=== PATIENT | female | born 1975 | race Caucasian/White ===

== ENCOUNTER 2019-02-15 22:42 | Emergency (ER) | payer BC ==
[~2019-02-15] VITALS: Ht 160 cm; Wt 52.2 kg
[~2019-02-15 22:42] MED LIST: OMEP40CA33 PO; SUCR1TAB78 PO
[2019-02-15 23:01] VITALS: BP_SYST 121
--- NOTE | 2019-02-16 01:42 | NUR ---
PT AMBULATORY TO BED 8 FOR EVALUATION
--- NOTE | 2019-02-16 01:47 | NUR ---
ER at bedside examining patient.
--- NOTE | 2019-02-16 01:55 | NUR ---
Pt BIB family to ED C/O INCREASED URINATION, PRESSURE IN PELVIC REGION AND PAIN, HEMATURIA. No other injuries and or complaints noted VSS no s/s of acute distress. Resting on gurney rails up
[2019-02-16] MEDS ORDERED: PHENAZOPYRIDINE HCL 100 MG TABLET PO ONE (02:00)
[2019-02-16] MEDS ORDERED: cefTRIAXone 1 GM in LIDOCAINE 1%, 20 ML MDV 2.1 ML IM ONE (02:00)
[2019-02-16] MEDS ORDERED: cefTRIAXone 1 GM IVPB PREMIX 50 ML IV ONE (02:00)
[2019-02-16 02:18] VITALS: BP_SYST 121
--- NOTE | 2019-02-16 02:18 | NUR ---
Patient given written and verbal discharge instructions and verbalizes understanding. ER MD discussed with patient the results and treatment provided. Patient in stable condition. ID arm band removed. Rx of Keflex and Pyridium given. Patient educated on pain management and to follow up with PMD. Pain Scale 0/10 Opportunity for questions provided and answered. Medication side effect fact sheet provided.
[2019-02-16 02:39] LABS: BILIRUBIN,URINE NEGATIVE (NEGATIVE); BLOOD, URINE 3+ (NEGATIVE); CLARITY/URINE CLEAR (CLEAR); COLOR,URINE YELLOW (YELLOW); GLUCOSE,URINE NEGATIVE (NEGATIVE); KETONES,URINE NEGATIVE (NEGATIVE); LEUKOCYTE ESTERASE ,URINE 3+ (NEGATIVE); NITRITE, URINE NEGATIVE (NEGATIVE); PROTEIN URINE 1+ (NEGATIVE); UROBILINOGEN,URINE 0.2 (0.2-1.0)
[2019-02-16 02:44] LABS: BACTERIA,URINE MODERATE /HPF (None Seen); MUCUS,URINE 1+ /LPF (None Seen); RBC,URINE 50-80 /HPF (0-3); WBC,URINE >100 /HPF (0-3)
== END 2019-02-16 02:18 | disposition home or self-care (01) ==
LOC: SED 22:42
CPT/HCPCS: 96372; 99283

== ENCOUNTER 2020-01-24 15:06 | Emergency (ER) | payer BC ==
[~2020-01-24] VITALS: Ht 160 cm; Wt 52.2 kg
[~2020-01-24 15:06] MED LIST changes: +OMEP40CA13 PO; -OMEP40CA33 PO
[2020-01-24 15:14] VITALS: BP_SYST 126
[2020-01-24 16:30] LABS: BASOPHILS % (AUTO) 0.2 % (0.0-2.0); EOSINOPHILS # (AUTO) 0.1 K/uL (0.0-0.4); EOSINOPHILS % (AUTO) 1.4 % (0.0-4.0); HEMATOCRIT 37.8 % (36-48); HEMOGLOBIN 12.7 g/dL (12.0-16.0); LYMPHOCYTES # (AUTO) 1.8 K/uL (1.0-5.5); LYMPHOCYTES % (AUTO) 31.2 % (20.5-51.5); MEAN CORPUSCULAR HEMOGLOBIN 31 pg (27-31); MEAN CORPUSCULAR HGB CONC 34 % (32-36); MEAN CORPUSCULAR VOLUME 92 fL (79.0-98.0); MONOCYTES # (AUTO) 0.5 K/uL (0.0-1.0); MONOCYTES % (AUTO) 8.3 % (1.7-9.3); NEUTROPHILS # (AUTO) 3.3 K/uL (1.8-7.7); NEUTROPHILS % (AUTO) 58.9 % (40.0-70.0); PLATELET COUNT (AUTO) 272 K/uL (130-430); RED BLOOD CELL COUNT(AUTO) 4.09 MIL/uL (4.2-6.2); RED CELL DISTRIBUTION WIDTH 12.8 % (9.0-15.0); WHITE BLOOD COUNT (AUTO) 5.6 K/uL (4.8-10.8)
[2020-01-24 16:38] LABS: CALCIUM 9.1 mg/dL (8.4-11.0); CREATININE 0.86 mg/dL (0.55-1.30); POTASSIUM 4.1 mmol/L (3.5-5.1)
[2020-01-24 17:01] LABS: BILIRUBIN,URINE NEGATIVE (NEGATIVE); BLOOD, URINE 2+ (NEGATIVE); GLUCOSE,URINE TRACE (NEGATIVE); KETONES,URINE TRACE (NEGATIVE); LEUKOCYTE ESTERASE ,URINE NEGATIVE (NEGATIVE); NITRITE, URINE NEGATIVE (NEGATIVE); PROTEIN URINE NEGATIVE (NEGATIVE); UROBILINOGEN,URINE 0.2 (0.2-1.0)
[2020-01-24 17:10] LABS: COLOR,URINE YELLOW (YELLOW)
[2020-01-24 17:12] LABS: BACTERIA,URINE None Seen /HPF (None Seen); WBC,URINE 0-3 /HPF (0-3)
[2020-01-24 17:14] LABS: CLARITY/URINE HAZY (CLEAR)
[2020-01-24 18:44] VITALS: BP_SYST 126
== END 2020-01-24 18:45 | disposition home or self-care (01) ==
LOC: SED 15:06
DX: R10.31 Right lower quadrant pain (principal)
CPT/HCPCS: 36415; 76705; 76830-TC; 76856-TC; 76857; 80048; 81000-TC; 85025; 87491; 87591; 99285